=== PATIENT | female | born 1995 | race Two or more races ===

== ENCOUNTER 2022-09-04 11:18 | Emergency (ER) | payer BC ==
[2022-09-04] MEDS ORDERED: Diphtheria,Pertussis(Acell),Tetanus Vaccine 0.5 ML Syringe IM ONE (12:18)
== END 2022-09-04 13:13 | disposition home or self-care (01) ==
LOC: MW.ED 11:18
DX: S81.851A Open bite, right lower leg, initial encounter (principal); Z23 Encounter for immunization; W54.0XXA Bitten by dog, initial encounter
CPT/HCPCS: 90471; 90715; 99283